=== PATIENT | female | born 1940 | race Caucasian/White ===

== ENCOUNTER 2016-10-30 18:04 | Inpatient (IN) | payer MEDICARE, BC ==
[~2016-10-30] VITALS: Ht 167.6 cm; Wt 66.2 kg
[2016-10-30 18:06] VITALS: BP 132/72; PULSE 74; RESP 15; TEMP 98.3; O2SAT 98
[2016-10-30] MEDS ORDERED: METO25TA3 PO (18:37)
[2016-10-30] MEDS ORDERED: METF500T PO (18:37)
[2016-10-30] MEDS ORDERED: ATOR10TA15 PO (18:37)
[2016-10-30] MEDS ORDERED: ESCI10TA PO (18:37)
[2016-10-30] MEDS ORDERED: VITA10002 PO (18:37)
[2016-10-30] MEDS ORDERED: RANI150T PO (18:37)
[2016-10-30] MEDS ORDERED: LISI10TA3 PO (18:37)
[2016-10-30] MEDS ORDERED: XARE20TA PO (18:37)
--- NOTE | 2016-10-30 18:44 | PD ---
HPI Chief Complaint: Fall Time Seen by Provider: 18:39 Travel History International Travel<30 days: No Contact w/Intl Traveler<30days: No Traveled to known affect area: No History of Present Illness HPI Patient comes in for evaluation status post witnessed trip and fall has been a parking lot toe where she is staying. Patient states she was evaluated on scene by EMT, who happened to be staying the same hotel recommend she come in for evaluation secondary to being on Xarelto and hitting her head. Fall was witnessed by family states that she landed on her all fours and then hit her head. Denies any loss of consciousness. Patient states that she stepped in a hole causing the fall. Patient denies any headache, neck pain, chest pain pre- or Post-fall, loss of consciousness, nausea, vomiting, change in vision, dizziness, lightheadedness, change in vision, numbness or tingling anywhere, shortness of breath, abdominal pain, or loss of bowel or bladder. Patient believes her tetanus shot is up-to-date. Patient states she's feels sore all over. Patient was offered pain medication but is declining at this time. Patient sustained abrasions to her bilateral knees and right elbow that she cleaned and had bandage prior to coming to the emergency department. Patient came by private vehicle. Family reports patient is acting her normal self and has a normal gait. PFSH Past Medical History Hx Anticoagulant Therapy: Yes (XARELTO) Atrial Fibrillation: Yes Cardiovascular Problems: Yes (PACEMAKER) High Cholesterol: Yes Diabetes: Yes Patient Takes Glucophage: Yes Sleep Apnea: Yes (uses CPAP) Tetanus Vaccination: < 5 Years Past Surgical History Abdominal Surgery: Yes (2015 18 inches of intestine removed) Cardiac Surgery: Yes (2013 ablation; pacemaker) Pacemaker: Yes Social History Alcohol Use: No Tobacco Use: No Substance Use: No Allergies-Medications (Allergen,Severity, Reaction): Coded Allergies: Verapamil (Verified Allergy, Unknown, 10/30/16) Reported Meds & Prescriptions Reported Meds & Active Scripts Active Reported Lisinopril 10 Mg Tab 10 Mg PO DAILY Xarelto (Rivaroxaban) 20 Mg Tab 20 Mg PO DAILY Ranitidine (Ranitidine HCl) 150 Mg Tab 150 Mg PO BID Metoprolol Tartrate 25 Mg Tab 50 Mg PO BID Metformin (Metformin HCl) 500 Mg Tab 500 Mg PO BIDPC With meals Vitamin B-12 (Cyanocobalamin) 1,000 Mcg Tab 1,000 Mcg PO DAILY Escitalopram (Escitalopram Oxalate) 10 Mg Tab 10 Mg PO DAILY Atorvastatin (Atorvastatin Calcium) 10 Mg Tab 10 Mg PO HS Review of Systems Except as stated in HPI: all other systems reviewed are Neg Physical Exam Narrative GENERAL: Well-developed, well nourished, in no acute distress, and non-ill appearing. SKIN: Focused skin assessment warm and dry. Small hematoma noted over forehead. Band-Aids noted over right elbow and bilateral anterior knees. HEAD: Atraumatic. Normocephalic. EYES: Pupils equal and round. EOMI. No scleral icterus. No injection or drainage. ENT: No nasal bleeding or discharge. Mucous membranes pink and moist. NECK: Trachea midline. No midline cervical tenderness or crepitus.. Supple. No nuclear rigidity. CARDIOVASCULAR: Radial and dorsal pulses 2+, intact, and equal bilaterally. Capillary refill less than 2 seconds. RESPIRATORY: No accessory muscle use. No respiratory distress. MUSCULOSKELETAL: No obvious deformities. No clubbing. No cyanosis. No edema. Full range of motion. Shoulder:FROM equal BL with passive flexion, extension, Abduction, Adduction, internal/external rotation, and pronation/supination. Sensation equal BL deltoid muscles. Pulses equal BL distal to injury. Capillary refill less than 2 seconds distal to injury and equal BL. FROM distal to injury and equal BL. Strength distal to injury equal BL. NV intact distal to injury equal BL. Flexion and extension of thumb equal BL. Equal strength and movement with abduction/adductions of BL fingers. Importer Exporter strength equal BL. Knee: Negative patellar apprehension, varus and valgus maneuvers, anterior draw test, and Jose Alberto test. Pulses equal BL distal to injury. Capillary refill less than 2 seconds distal to injury and equal BL. FROM distal to injury and equal BL. Strength distal to injury equal BL. NV intact distal to injury. Dorsal pulses equal BL. Sensation equal BL 1st web space. NEUROLOGICAL: Awake and alert. No obvious cranial nerve deficits. Motor grossly within normal limits. Normal speech. PSYCHIATRIC: Appropriate mood and affect; insight and judgment normal. Data Data Last Documented VS Vital Signs Date Time Temp Pulse Resp B/P Pulse Ox O2 Delivery O2 Flow Rate FiO2 10/30/16 18:21 18 10/30/16 18:06 98.3 74 132/[address] Brain W/O Iv Contrast(Rout) (10/30/16 ) Ct Cerv Spine W/O Contrast (10/30/16 ) Ice/Cold Pack (10/30/16 18:42) Apply Cervical Collar (10/30/16 19:27) Basic Metabolic Panel (Bmp) (10/30/16 19:28) Complete Blood Count With Diff (10/30/16 19:28) Prothrombin Time / Inr (Pt) (10/30/16 19:28) Act Partial Throm Time (Ptt) (10/30/16 19:28) Iv Access Insert/Monitor (10/30/16 19:28) Ecg Monitoring (10/30/16 19:28) Oximetry (10/30/16 19:28) Sodium Chloride 0.9% Flush (Ns Flush) (10/30/16 19:30) Electrocardiogram (10/30/16 19:28) Chest, Single Ap (10/30/16 ) [place] J Collar (10/30/16 ) Consult Neurosurgery (10/30/16 ) (Hub Use Only)Inp Phy Cons/Ref (10/30/16 ) Admit Order (Ed Use Only) (10/30/16 20:26) Admit To Inpatient (10/30/16 ) Vital Signs (Adult) Q4H (10/30/16 20:24) Neuro Checks Q4H (10/30/16 20:24) Activity Oob With Assistance (10/30/16 20:24) Assistant Superintendent / Telemetry .CONTINUOUS (10/30/16 20:24) Intake + Output ALLEN.QSHIFT (10/30/16 20:24) Diet Heart Healthy (10/31/16 Breakfast) Sodium Chlor 0.9% 1000 Ml Inj (Ns 1000 M (10/30/16 20:24) Sodium Chloride 0.9% Flush (Ns Flush) (10/30/16 20:30) Sodium Chloride 0.9% Flush (Ns Flush) (10/30/16 21:00) Acetaminophen (Tylenol) (10/30/16 20:30) Ondansetron Inj (Zofran Inj) (10/30/16 20:30) Comprehensive Metabolic Panel (10/31/16 06:00) Complete Blood Count With Diff (10/31/16 06:00) Resp Oxygen Renaldo C Titrat 1-4 L (10/30/16 ) Pt Request For Service (10/30/16 20:24) Case Management Consult (10/30/16 20:24) Enoxaparin Inj (Lovenox Inj) (10/30/16 21:00) Scd Bilateral/Knee High ALLEN.BID (10/30/16 20:24) Gokul Bilateral/Knee High ALLEN.QSHIFT (10/30/16 20:24) Docusate Sodium-Senna (Eulalia-Colace) (10/30/16 21:00) Magnesium Hydroxide Liq (Milk Of Magnesi (10/30/16 20:30) Sennosides (Senokot) (10/30/16 20:30) Bisacodyl Supp (Dulcolax Supp) (10/30/16 20:30) Lactulose Liq (Lactulose Liq) (10/30/16 20:30) Inpatient Certification (10/30/16 ) Morphine Inj (Morphine Inj) (10/30/16 20:30) MDM Medical Decision Making Medical Screen Exam Complete: Yes Emergency Medical Condition: Yes Interpretation(s) CT head read by the radiologist shows: Negative noncontrast CT brain. No acute findings. CT cervical spine read by the radiologist shows: 1. No fracture seen. 2. There is increased separation between the arch of C1 and the dens, measuring 5 mm. This suggests ligamentous injury. Until integrity of the atlantoaxial ligaments can be verified, this should be viewed as an unstable injury. 3. Advanced discogenic and facet joint degenerative changes from C3-C7. Differential Diagnosis Fracture, strain, contusion, intracranial hemorrhage, hematoma, abrasions, other Narrative Course Patient seen and examined. Initial CT studies were obtained and read by the radiologist. Patient was placed in a cervical collar. Discussed patient with neurosurgeon on-call who recommends having patient placed in a [place]- and have patient admitted to medicine and he'll evaluate patient since patient is unable to have MRI done. Discussed all findings and plan of care with patient and her family. Patient is agreeable to admission however patient states if there is any type of surgical intervention she would like to be discharged to have the surgery done back in [place] where she is visiting from. I explained she will have to discuss this with the neurosurgeon. All questions were answered. Discussed patient with Dr. Patel, who saw and evaluated the patient and is in agreement with plan of care and disposition. Physician Communication Physician Communication [address] Vee, neurosurgeon day habilitation supervisor, who recommends patient placed in a [place] J collar and admitted to medicine and he will consult. Diagnosis Primary Impression: Injury to ligament of cervical spine Qualified Code: S13.4XXA - Injury to ligament of cervical spine, initial encounter Admitting Information Admitting Physician Requests: Admit Condition: Stable Kike Callaway Oct 30, 2016 18:44
--- NOTE | 2016-10-30 19:14 | RADRPT ---
EXAM DATE/TIME: 10/30/2016 19:04 [facility] COMPARISON: No previous studies available for comparison. INDICATIONS : Trauma, trip and fell. Hit head. RADIATION DOSE: 56.35 CTDIvol (mGy) MEDICAL HISTORY : Cardiovascular disease. Diabetes mellitus type 2. SURGICAL HISTORY : Pacemaker. ENCOUNTER: Initial ACUITY: 1 day PAIN SCALE: 4/10 LOCATION: cranial TECHNIQUE: Multiple contiguous axial images were obtained of the head. Using automated exposure control and adj ustment of the mA and/or kV according to patient size, radiation dose was kept as low as reasonably a chievable to obtain optimal diagnostic quality images. FINDINGS: CEREBRUM: The ventricles are normal for age. No evidence of midline shift, mass lesion, hemorrhage or acute in farction. No extra-axial fluid collections are seen. POSTERIOR FOSSA: The cerebellum and brainstem are intact. The 4th ventricle is midline. The cerebellopontine angle i s unremarkable. EXTRACRANIAL: The visualized portion of the orbits is intact. SKULL: The calvaria is intact. No evidence of skull fracture. CONCLUSION: Negative noncontrast CT brain. No acute findings. Artemio Mancuso MD on October 30, 2016 at 19:11 Board Certified Radiologist. This report was verified electronically.
--- NOTE | 2016-10-30 19:23 | RADRPT ---
EXAM DATE/TIME: 10/30/2016 19:04 [facility] COMPARISON: No previous studies available for comparison. INDICATIONS : Trauma, trip and fell. Hit head. RADIATION DOSE: 30.87 CTDIvol (mGy) MEDICAL HISTORY : Cardiovascular disease. Diabetes mellitus type 2. SURGICAL HISTORY : Pacemaker. ENCOUNTER: Initial ACUITY: 1 day PAIN SCALE: 2/10 LOCATION: neck TECHNIQUE: Volumetric scanning of the cervical spine was performed. Multiplanar reconstructions in the sagittal, coronal and oblique axial planes were performed. Using automated exposure control and adjustment o f the mA and/or kV according to patient size, radiation dose was kept as low as reasonably achievable to obtain optimal diagnostic quality images. FINDINGS: The head is held in flexion. There is increased distance between the anterior arch of C1 and the den s, measuring almost 5 mm. The diameter of the bony spinal canal at the level of the dens measures 1 cm. The arch of C1 is intact. C2 is intact. Discogenic degenerative changes from C3-T1 with partially bridging anterior paravertebral ossificatio n and posterior osteophytes. The facet joints remain in normal alignment with advanced degenerative changes of the facet joints on the left side C3-C5. The spinous processes are intact. There is ossi fication in the soft tissues superficial to the C5 and C6 level. No fracture seen in the vertebral bodies. There is no foraminal stenosis at multiple levels, severe on the left side at C3-4, moderately severe bilaterally C4-5, C5-6, mild bilaterally at C6-7. CONCLUSION: 1. No fracture seen. 2. There is increased separation between the arch of C1 and the dens, measuring 5 mm. This suggests ligamentous injury. Until integrity of the atlantoaxial ligaments can be verified, this should be vi ewed as an unstable injury. 3. Advanced discogenic and facet joint degenerative changes from C3-C7. Artemio Mancuos MD on October 30, 2016 at 19:15 Board Certified Radiologist. This report was verified electronically.
[2016-10-30] MEDS ORDERED: SODIUM CHLORIDE 0.9% FLUSH 10 ML FLUSH IV FLUSH PRN ×2 (19:30→20:30)
--- NOTE | 2016-10-30 20:18 | RADRPT ---
EXAM DATE/TIME: 10/30/2016 19:50 [facility] COMPARISON: No previous studies available for comparison. INDICATIONS : Evaluate for pneumonia, pneumothorax and communicable disease. MEDICAL HISTORY : None. SURGICAL HISTORY : Pacemaker. ENCOUNTER: Initial ACUITY: 1 day PAIN SCORE: 0/10 LOCATION: Bilateral chest FINDINGS: A single view of the chest demonstrates the lungs to be symmetrically aerated with some patchy areas of infiltrate in the left lower lung. No focal areas of consolidation seen. The right lung is clear . Both hemidiaphragms are well delineated. The cardiomediastinal contours are unremarkable. Osseou s structures are intact. Cardiac pacer leads project over the right atrium and right ventricle. CONCLUSION: Patchy infiltrates in the left lower lung without consolidation. Artemio Mancuso MD on October 30, 2016 at 20:15 Board Certified Radiologist. This report was verified electronically.
[2016-10-30] MEDS: SODIUM CHLOR 0.9% 1000 ML INJ 1,000 ML IV SCH ×2 (20:24→22:41)
[2016-10-30] MEDS ORDERED: BISACODYL 10 MG SUPP RECTAL PRN (20:30)
[2016-10-30] MEDS ORDERED: MORPHINE SULFATE 4 MG/ML INJ IV PUSH PRN (20:30)
[2016-10-30] MEDS ORDERED: LACTULOSE SYRUP 20 GM/30 ML CUP PO PRN (20:30)
[2016-10-30] MEDS ORDERED: MAGNESIUM HYDROXIDE SUSP 30 ML CUP PO PRN (20:30)
[2016-10-30] MEDS ORDERED: ACETAMINOPHEN 325 MG TAB PO PRN (20:30)
[2016-10-30] MEDS ORDERED: SENNOSIDES 8.6 MG TAB PO PRN (20:30)
[2016-10-30] MEDS ORDERED: ONDANSETRON HCL 4 MG/2 ML VIAL IVP PRN (20:30)
--- NOTE | 2016-10-30 20:37 | PD ---
Data Data Last Documented VS Vital Signs Date Time Temp Pulse Resp B/P Pulse Ox O2 Delivery O2 Flow Rate FiO2 10/30/16 18:21 18 10/30/16 18:06 98.3 74 132/[address] Brain W/O Iv Contrast(Rout) (10/30/16 ) Ct Cerv Spine W/O Contrast (10/30/16 ) Ice/Cold Pack (10/30/16 18:42) Apply Cervical Collar (10/30/16 19:27) Basic Metabolic Panel (Bmp) (10/30/16 19:28) Complete Blood Count With Diff (10/30/16 19:28) Prothrombin Time / Inr (Pt) (10/30/16 19:28) Act Partial Throm Time (Ptt) (10/30/16 19:28) Iv Access Insert/Monitor (10/30/16 19:28) Ecg Monitoring (10/30/16 19:28) Oximetry (10/30/16 19:28) Sodium Chloride 0.9% Flush (Ns Flush) (10/30/16 19:30) Electrocardiogram (10/30/16 19:28) Chest, Single Ap (10/30/16 ) [place] J Collar (10/30/16 ) Consult Neurosurgery (10/30/16 ) (Hub Use Only)Inp Phy Cons/Ref (10/30/16 ) Admit Order (Ed Use Only) (10/30/16 20:26) Admit To Inpatient (10/30/16 ) Vital Signs (Adult) Q4H (10/30/16 20:24) Neuro Checks Q4H (10/30/16 20:24) Activity Oob With Assistance (10/30/16 20:24) Assistant Nurse Manager / Telemetry .CONTINUOUS (10/30/16 20:24) Intake + Output ALLEN.QSHIFT (10/30/16 20:24) Diet Heart Healthy (10/31/16 Breakfast) Sodium Chlor 0.9% 1000 Ml Inj (Ns 1000 M (10/30/16 20:24) Sodium Chloride 0.9% Flush (Ns Flush) (10/30/16 20:30) Sodium Chloride 0.9% Flush (Ns Flush) (10/30/16 21:00) Acetaminophen (Tylenol) (10/30/16 20:30) Ondansetron Inj (Zofran Inj) (10/30/16 20:30) Comprehensive Metabolic Panel (10/31/16 06:00) Complete Blood Count With Diff (10/31/16 06:00) Resp Oxygen Renaldo C Titrat 1-4 L (10/30/16 ) Pt Request For Service (10/30/16 20:24) Case Management Consult (10/30/16 20:24) Enoxaparin Inj (Lovenox Inj) (10/30/16 21:00) Scd Bilateral/Knee High ALLEN.BID (10/30/16 20:24) Gokul Bilateral/Knee High ALLEN.QSHIFT (10/30/16 20:24) Docusate Sodium-Senna (Eulalia-Colace) (10/30/16 21:00) Magnesium Hydroxide Liq (Milk Of Magnesi (10/30/16 20:30) Sennosides (Senokot) (10/30/16 20:30) Bisacodyl Supp (Dulcolax Supp) (10/30/16 20:30) Lactulose Liq (Lactulose Liq) (10/30/16 20:30) Inpatient Certification (10/30/16 ) Morphine Inj (Morphine Inj) (10/30/16 20:30) MDM Supervised Visit with MAYRA: Yes Narrative Course I, Dr. Patel], have reviewed the advance practice practitioner's documentation and am in agreement, met with the patient face to face, made the diagnosis, and the medical decision making was done by me. *My assessment and Findings: Patient seen and examined by me, I reviewed the CAT scan results and there is concern for C1 on C2 instability. The patient was placed in a [place] J collar. CT head was negative. The patient has no neurologic findings at this time, cranial nerves II through XII are grossly intact and nonfocal, 5 out of 5 strength in all 4 extremity's, no paresthesias. Patient was discussed with neurosurgery on-call by Raphael Callaway, she will be admitted for the moment for consideration of further workup versus operative intervention. Diagnosis Primary Impression: Injury to ligament of cervical spine Qualified Code: S13.4XXA - Injury to ligament of cervical spine, initial encounter Admitting Information Admitting Physician Requests: Admit Condition: Stable Vicente Patel MD Oct 30, 2016 20:37
[2016-10-30] MEDS ORDERED: DEXTROSE 50% IN WATER 50 ML VIAL(D50) IV PRN (20:45)
[2016-10-30] MEDS ORDERED: GLUCAGON 1 MG/ML VIAL OTHER PRN (20:45)
[2016-10-30 20:57] VITALS: BP 179/78; PULSE 75; RESP 20; O2SAT 96
[2016-10-30] MEDS: INSULIN ASPART SUPPLEMENTAL SCALE SQ SCH (21:00)
[2016-10-30] MEDS ORDERED: ATORVASTATIN 10 MG TAB PO SCH (21:00)
[2016-10-30] MEDS: METOPROLOL TARTRATE 25 MG TAB PO SCH (21:00)
[2016-10-30] MEDS: SODIUM CHLORIDE 0.9% FLUSH 10 ML FLUSH IV FLUSH SCH (21:00)
[2016-10-30] MEDS ORDERED: ENOXAPARIN SODIUM 40 MG/0.4 ML SYRINGE SQ SCH (21:00)
[2016-10-30] MEDS: DOCUSATE SODIUM 50 MG/SENNA 8.6 MG TAB PO SCH (21:00)
[2016-10-30] MEDS: FAMOTIDINE 20 MG TAB PO SCH (21:00)
[2016-10-30 21:02] VITALS: O2SAT 97
--- NOTE | 2016-10-30 21:19 | HHI.HP ---
[facility] Non-Staff Admission Diagnosis cervical ligamentous injury at C1 Diagnoses: Chief Complaint: fall Travel History International Travel<30 Days: No Contact w/Intl Traveler <30 Da: No Traveled to Known Affected Are: No History of Present Illness Patient is a very pleasant 76 yo F with PMH of HTN, DM2, Afib with ablation in the past on xarelto, who came to the ED for evaluation status post witnessed trip and fall while in a parking lot where she is staying. Patient states she was evaluated on the scene by ENT to have him to be staying the same hotel recommend she come in for evaluation secondary to being on Zaroxolyn hitting her head. Fall was witnessed by family states that she landed on her all fours and then hit her head. Denies any loss of consciousness. Patient states that she stepped in a hole causing the fall. Patient denies any headache, neck pain , chest pain pre-or Post-fall, loss of consciousness, nausea, vomiting, change in vision, dizziness, lightheadedness, change in vision, numbness or tingling anywhere, shortness of breath, abdominal pain, or loss of bowel or bladder. Patient leaves her tetanus shot is up-to-date. Patient states she's feels sore all over. Patient was offered pain medication but is declining at this time. She reports her tetanus shot is up-to-date. Patient sustained abrasions to her bilateral knees and right elbow that she cleaned and had bandage prior to coming to the emergency department. Patient came by private vehicle. Family reports patient is acting her normal self and has a normal gait. Review of Systems Except as stated in HPI: all other systems reviewed are Neg Past Family Social History Past Medical History HTN, DN2, Afib with ablation in the past and PM, on xarelto, sleep apnea Past Surgical History 2015 18 inches of intestine removed) 2013 ablation; pacemaker Reported Medications Reported Meds & Active Scripts Active Reported Lisinopril 10 Mg Tab 10 Mg PO DAILY Xarelto (Rivaroxaban) 20 Mg Tab 20 Mg PO DAILY Ranitidine (Ranitidine HCl) 150 Mg Tab 150 Mg PO BID Metoprolol Tartrate 25 Mg Tab 50 Mg PO BID Metformin (Metformin HCl) 500 Mg Tab 500 Mg PO BIDPC With meals Vitamin B-12 (Cyanocobalamin) 1,000 Mcg Tab 1,000 Mcg PO DAILY Escitalopram (Escitalopram Oxalate) 10 Mg Tab 10 Mg PO DAILY Atorvastatin (Atorvastatin Calcium) 10 Mg Tab 10 Mg PO HS Allergies: Coded Allergies: Verapamil (Verified Allergy, Unknown, 10/30/16) Family History Father : emphysema was a smoker Mother: Hemorrhagic stroke at 80 ya Sister cancer unspecified Social History Denies EtOH use, tobacco use or illicit drug use Physical Exam Vital Signs Vital Signs Date Time Temp Pulse Resp B/P Pulse Ox O2 Delivery O2 Flow Rate FiO2 10/30/16 18:21 18 10/30/16 18:06 98.3 74 15 132/72 98 Physical Exam GENERAL: This is a very pleasant 76 yo F, well-nourished, well-developed patient , in no apparent distress. SKIN: Superficial lacerations knees, elbows, band aid applied, c/d/i. Cool and dry. HEAD: Atraumatic. Normocephalic. No temporal or scalp tenderness. EYES: Pupils equal round and reactive. Extraocular motions intact. No scleral icterus. No injection or drainage. ENT: Nose without bleeding, purulent drainage or septal hematoma. Throat without erythema, tonsillar hypertrophy or exudate. Uvula midline. Airway patent. NECK: [place] collar in place. Trachea midline. CARDIOVASCULAR: Regular rate and rhythm without murmurs, gallops, or rubs. RESPIRATORY: Clear to auscultation. Breath sounds equal bilaterally. No wheezes , rales, or rhonchi. GASTROINTESTINAL: Abdomen soft, non-tender, nondistended. No hepato-splenomegaly , or palpable masses. No guarding. MUSCULOSKELETAL: No obvious deformities. No clubbing. No cyanosis. No edema. Upper extremities full ROM, neurovascular intact. NEUROLOGICAL: Awake and alert. No obvious cranial nerve deficits. Motor grossly within normal limits. Normal speech. PSYCHIATRIC: Appropriate mood and affect; insight and judgment normal. Imaging Last Impressions Head CT 10/30/16 0000 Signed Impressions: Service Date/Time: Sunday, October 30, 2016 19:04 - CONCLUSION: Negative noncontrast CT brain. No acute findings. Artemio Mancuso MD Chest X-Ray 10/30/16 0000 Signed Impressions: Service Date/Time: Sunday, October 30, 2016 19:50 - CONCLUSION: Patchy infiltrates in the left lower lung without consolidation. Artemio Mancuso MD Cervical Spine CT 10/30/16 0000 Signed Impressions: Service Date/Time: Sunday, October 30, 2016 19:04 - CONCLUSION: 1. No fracture seen. 2. There is increased separation between the arch of C1 and the dens, measuring 5 mm. This suggests ligamentous injury. Until integrity of the atlantoaxial ligaments can be verified, this should be viewed as an unstable injury. 3. Advanced discogenic and facet joint degenerative changes from C3- C7. Artemio Mancuso MD Assessment and Plan Assessment and Plan Fall Neck pain after fall with cervical ligamentous injury at C1 CT head read by the radiologist shows: Negative noncontrast CT brain. No acute findings. CT cervical spine shows: 1. No fracture seen. 2. There is increased separation between the arch of C1 and the dens, measuring 5 mm. This suggests ligamentous injury. Until integrity of the atlantoaxial ligaments can be verified, this should be viewed as an unstable injury. 3. Advanced discogenic and facet joint degenerative changes from C3-C7. Per Dr. Vee, neurosurgeon business support professional, recommends [place] J collar and to be consulted on the case. Consuklt neurosurgery .Appreciate recommendations. Note MRI can't be done as patient with PM AFib (with h/o ablation and PM placement: Continue Metoprolol 50 Mg PO BID. Continue Xarelto 20 Mg PO DAILY HTN: continue Lisinopril 10 Mg PO DAILY, and Metoprolol Diabetes mellitus: Hold Metformin. Accu checks, ISS. HLD: Continue Atorvastatin 10 Mg PO HS Depression/Anxiety: Continue Escitalopram 10 Mg PO DAILY GERD: Ranitidine 150 Mg PO BID GI ppx: Ranitidine 150 Mg PO BID DVT ppx SCD/TEDs, on xarelto Physician Certification 2 Midnight Certification Type: Admission for Inpatient Services Order for Inpatient Services The services are ordered in accordance with Medicare regulations or non- Medicare payer requirements, as applicable. In the case of services not specified as inpatient-only, they are appropriately provided as inpatient services in accordance with the 2-midnight benchmark. Estimated LOS (days): 3 days is the estimated time the patient will need to remain in the hospital, assuming treatment plan goals are met and no additional complications. Post-Hospital Plan: Home Maria M Dugan MD Oct 30, 2016 21:19
[2016-10-30 21:22] LABS: AUTOMATED NEUTROPHIL # 4.2 TH/MM3 (1.8-7.7); BASOPHIL # 0.1 TH/MM3 (0-0.2); BASOPHIL % 0.6 % (0.0-2.0); EOSINOPHIL # 0.2 TH/MM3 (0-0.4); EOSINOPHIL % 2.9 % (0.0-4.0); HEMATOCRIT 34.4 % (35.0-46.0); HEMO FLAGS DIFF FINAL; LYMPH % 35.8 % (9.0-44.0); LYMPHOCYTE # 2.8 TH/MM3 (1.0-4.8); MEAN CELL VOLUME 90.9 FL (80.0-100.0); MEAN CORPUSCULAR HEMOGLOBIN 30.9 PG (27.0-34.0); MONO % 7.4 % (0.0-8.0); NEUT % 53.3 % (16.0-70.0); PLATELET COUNT 154 TH/MM3 (150-450); RED BLOOD COUNT 3.78 MIL/MM3 (4.00-5.30); RED CELL DISTRIBUTION WIDTH 14.2 % (11.6-17.2); WHITE BLOOD COUNT 7.9 TH/MM3 (4.0-11.0)
[2016-10-30 21:26] LABS: PROTHROMBIN TIME - PATIENT 11.2 SEC (9.8-11.6)
[2016-10-30 21:44] LABS: POTASSIUM 4.3 MEQ/L (3.5-5.1)
[2016-10-31] VITALS: BP 123/61; PULSE 69; RESP 20; TEMP 98.2; O2SAT 96
[2016-10-31 01:27] VITALS: PULSE 69
[2016-10-31 04:00] VITALS: BP 150/71; PULSE 76; RESP 20; TEMP 96.5; O2SAT 96
[2016-10-31] MEDS: INSULIN ASPART SUPPLEMENTAL SCALE SQ SCH ×2 (05:29→11:58)
[2016-10-31 07:55] VITALS: BP 128/71; PULSE 68; RESP 18; TEMP 96.5; O2SAT 98
[2016-10-31] MEDS: METOPROLOL TARTRATE 25 MG TAB PO SCH (08:29)
[2016-10-31] MEDS: FAMOTIDINE 20 MG TAB PO SCH (08:30)
[2016-10-31] MEDS: DOCUSATE SODIUM 50 MG/SENNA 8.6 MG TAB PO SCH (08:31)
[2016-10-31] MEDS: SODIUM CHLORIDE 0.9% FLUSH 10 ML FLUSH IV FLUSH SCH (08:32)
[2016-10-31] MEDS ORDERED: LISINOPRIL 10 MG TAB PO SCH (09:00)
[2016-10-31] MEDS ORDERED: RIVAROXABAN 20 MG TAB PO SCH (09:00)
[2016-10-31] MEDS ORDERED: CYANOCOBALAMIN 1,000 MCG TAB PO SCH (09:00)
[2016-10-31] MEDS ORDERED: ESCITALOPRAM OXALATE 10 MG TAB PO SCH (09:00)
[2016-10-31 09:07] LABS: AUTOMATED NEUTROPHIL # 4.4 TH/MM3 (1.8-7.7); BASOPHIL % 0.4 % (0.0-2.0); EOSINOPHIL # 0.1 TH/MM3 (0-0.4); HEMATOCRIT 34.8 % (35.0-46.0); HEMO FLAGS DIFF FINAL; LYMPH % 29.9 % (9.0-44.0); LYMPHOCYTE # 2.2 TH/MM3 (1.0-4.8); MEAN CELL VOLUME 92.6 FL (80.0-100.0); MEAN CORPUSCULAR HEMOGLOBIN 30.3 PG (27.0-34.0); MEAN CORPUSCULAR HGB CONC 32.7 % (32.0-36.0); MONO % 8.1 % (0.0-8.0); NEUT % 59.6 % (16.0-70.0); PLATELET COUNT 136 TH/MM3 (150-450); RED BLOOD COUNT 3.76 MIL/MM3 (4.00-5.30); WHITE BLOOD COUNT 7.4 TH/MM3 (4.0-11.0)
[2016-10-31 09:38] LABS: ALKALINE PHOSPHATASE 71 U/L (45-117); ALT (GPT) 28 U/L (10-53); ANION GAP 8 MEQ/L (5-15); AST (GOT) 21 U/L (15-37); BICARBONATE 23.1 MEQ/L (21.0-32.0); BLOOD UREA NITROGEN 13 MG/DL (7-18); CHLORIDE 109 MEQ/L (98-107); GLOMERULAR FILTRATION RATE 101 ML/MIN (>89); POTASSIUM 4.1 MEQ/L (3.5-5.1); SODIUM (NA) 140 MEQ/L (136-145); TOTAL BILIRUBIN ADULT 0.5 MG/DL (0.2-1.0)
--- NOTE | 2016-10-31 10:01 | HHI.PR ---
Subjective Remarks patient resting on the chair family at the bedside denied any headache or dizziness or blurry vision numbness or tingling in the arms or any muscle weakness Objective Vitals Vital Signs Date Time Temp Pulse Resp B/P Pulse Ox O2 Delivery O2 Flow Rate FiO2 10/31/16 07:55 96.5 68 18 128/71 98 10/31/16 04:00 96.5 76 20 150/71 96 10/31/16 01:27 69 10/31/16 00:00 98.2 69 20 123/61 96 10/30/16 21:02 97 21 10/30/16 20:57 75 20 179/78 96 10/30/16 18:21 18 10/30/16 18:06 98.3 74 15 132/72 98 I/O 10/30/16 10/30/16 10/30/16 10/31/16 10/31/16 10/31/16 07:00 15:00 23:00 07:00 15:00 23:00 Intake Total 757 ml Balance 757 ml Intake IV Total 757 ml # Voids 3 # Bowel Movements 1 Result Diagram: 10/31/16 0852 10/31/16 0852 Objective Remarks GENERAL: This is a well-nourished, well-developed patient, in no apparent distress. in neck collar CARDIOVASCULAR: Regular rate and rhythm without murmurs, gallops, or rubs. RESPIRATORY: Clear to auscultation. Breath sounds equal bilaterally. No wheezes , rales, or rhonchi. GASTROINTESTINAL: Abdomen soft, non-tender, nondistended. Normal active bowel sounds MUSCULOSKELETAL: Extremities without clubbing, cyanosis, or edema. NEURO: Alert & Oriented x4 to person, place, time, situation. Moves all ext x4 A/P Assessment and Plan 10/31: Discussed with the patient and her family in length, her neuro exam is fully within normal limits, the family is out of town he would like to be discharged if no further intervention needed, we placed a call for neurosurgery to confirm Fall Neck pain after fall with cervical ligamentous injury at C1 CT head read by the radiologist shows: Negative noncontrast CT brain. No acute findings. CT cervical spine shows: 1. No fracture seen. 2. There is increased separation between the arch of C1 and the dens, measuring 5 mm. This suggests ligamentous injury. Until integrity of the atlantoaxial ligaments can be verified, this should be viewed as an unstable injury. 3. Advanced discogenic and facet joint degenerative changes from C3-C7. Per Dr. Vee, neurosurgeon monotype operator, recommends [place] J collar and to be consulted on the case. Consult neurosurgery .Appreciate recommendations. Note MRI can't be done as patient with PM, further recs per nsx AFib (with h/o ablation and PM placement: Continue Metoprolol 50 Mg PO BID. Continue Xarelto 20 Mg PO DAILY HTN: continue Lisinopril 10 Mg PO DAILY, and Metoprolol Diabetes mellitus: Hold Metformin. Accu checks, ISS. HLD: Continue Atorvastatin 10 Mg PO HS Depression/Anxiety: Continue Escitalopram 10 Mg PO DAILY GERD: Ranitidine 150 Mg PO BID GI ppx: Ranitidine 150 Mg PO BID DVT ppx SCD/TEDs, on xarelto Discharge Planning Discharge patient to home Condition on discharge: Improved on neck collar healthy heart ada 1800 Diet as tolerated [employer]ie activity Rx written:see med rec, neck collar 4-6 weeks Follow-up with primary care physician and neurosurgeon in 1-2 weeks Kareem Cormier MD Oct 31, 2016 10:01
[2016-10-31 10:32] VITALS: O2SAT 96
[2016-10-31 11:40] VITALS: BP 124/69; PULSE 65; RESP 18; TEMP 97.2; O2SAT 95
--- NOTE | 2016-10-31 12:02 | MB ---
cc: KEVIN TRACY M.D. DATE OF CONSULTATION 10/31/2016 REASON FOR CONSULTATION C1-2 possible instability. HISTORY OF PRESENT ILLNESS A 76-year-old female who is visiting from [place], [place], on vacation, residing in a hotel. The patient was checking in last evening when she fell in the parking lot and struck her forehead. She denies any loss of consciousness or any numbness or paresthesias or weakness in the upper or lower extremities. She suffered from some abrasions of her upper and lower extremities and the forehead. She was brought to [facility] and a CT scan of the head is negative. CT of the cervical spine does not reveal any fractures with extensive cervical degenerate changes. There is C1-2 predental space widening of 5-mm and some associated spinal stenosis. She cannot have an MRI scan given her history of a cardiac pacemaker in place. She was placed in a cervical collar admitted to the medical service with neurosurgical consultation requested. PAST MEDICAL HISTORY 1. Atrial fibrillation status post ablation and also has a pacemaker in place. 2. Hyperlipidemia. 3. Diabetes mellitus. 4. Sleep apnea with C-PAP machine use. 5. Abdominal surgery. SOCIAL HISTORY She is on vacation for the week from [place]. Denies alcohol or tobacco use. She is and her and son-in-law are here with her. MEDICATIONS 1. Atorvastatin 10 mg q.h.s. 2. Vitamin B12 1,000 mcg daily. 3. Lisinopril 10 mg daily. 4. Metformin 500 mg b.i.d. 5. Metoprolol 50 mg b.i.d. 6. Zantac 150 mg b.i.d. 7. Xarelto 20 mg daily. 8. Escitalopram 10 mg daily. ALLERGIES VERAPAMIL. LABORATORY FINDINGS White blood cell count 7.4, hemoglobin 11.4, platelet count 136. PT 11.2, INR 1.0, PTT 24, Sodium 140, potassium 4.1, BUN 13, creatinine 0.58, glucose 101. PHYSICAL EXAMINATION VITAL SIGNS: Temperature 96.5, pulse 68, respiratory rate 18, blood pressure 128/71, oxygen saturation 98% on room air. HEAD: She has a forehead abrasion with no Stovall's or raccoon's sign. NECK: Neck is in a [place] J collar. When the collar is removed with controlled flexion/extension she relates no pain or guarding or rigidity. Chest: Clear to auscultation bilaterally. HEART: Regular rate and rhythm. Normal S1 and S2. ABDOMEN: Soft, nontender. EXTREMITIES: No cyanosis or edema with some abrasions. NEUROLOGIC: He is awake, alert. Cranial nerves are grossly intact. Motor strength in the upper and lower extremities is 5/5. Speech is normal and fluent. Light touch sensation is intact. Negative Babinski and Rebeca's. She is ambulating independently to the bathroom and relates no lightheadedness or dizziness. IMPRESSION 1. C1-2 predental space widening, more than within physiologic range. Questionable is this is related to ligamentous disruption as unfortunately she could not have an MRI scan. She does not appear to be symptomatic from this with no neck pain with movement. 2. Chronic atrial fibrillation, status post ablation and pacemaker in place on Xarelto anticoagulant therapy. 3. Diabetes mellitus. 4. Sleep apnea. 5. Hypertension. PLAN We will obtain a cervical spine flexion-extension x-ray to rule out any instability with positioning. If there does appear to be significant abnormal movement with dynamic imaging, then that would indicate an unstable ligamentous injury also and would likely require C1-C2 surgical stabilization. If there is no abnormal movement, then we could treat this nonsurgically but I would still leave her in a collar given the possibility of some ligamentous disruption to heal in the next 4-6 weeks. The patient and her family relate that, if there is any surgical intervention to be undertaken, she would prefer to have this done in [place] and would like to be discharged home and follow up with her local physician and surgeon. Accordingly, I ill order the cervical spine flexion/extension x-ray and she could likely be discharged thereafter to follow up with her local physicians. She understands that if there is gross instability, the risk of this leading to further subluxation and spinal cord injury with paralysis, incontinence and respiratory arrest/. MD MONAE Boo/MACY /11:01 AM /11:44 AM
--- NOTE | 2016-10-31 12:10 | RADRPT ---
EXAM DATE/TIME: 10/31/2016 11:45 [facility] COMPARISON: CHEST SINGLE AP, October 30, 2016, 19:50. INDICATIONS : Neck pain. Fall yesterday. MEDICAL HISTORY : Cardiovascular disease. Diabetes mellitus type 2 SURGICAL HISTORY : Pacemaker. ENCOUNTER: Subsequent ACUITY: 2 days PAIN SCORE: 2/10 LOCATION: Bilateral neck. FINDINGS: Flexion and extension views of cervical spine are provided. Alignment of the cervical vertebral jose s and the atlantodens joint appear stable. There are advanced degenerative changes. No acute fracture is seen. CONCLUSION: 1. Stable alignment of the cervical spine with flexion and extension. 2. Advanced degenerative changes. Celestine Moss MD on October 31, 2016 at 12:07 Board Certified Radiologist. This report was verified electronically.
--- NOTE | 2016-10-31 18:21 | EKG ---
Date Performed: 10/30/2016 Time Performed: 19:44:25 PTAGE: 76 years EKG: Atrial pacing ABNORMAL RHYTHM ECG NO PREVIOUS TRACING DOCTOR: Tremaine Xiao Interpretating Date/Time 10/31/2016 18:20:10
== END 2016-10-31 14:23 | disposition home or self-care (01) | DRG 552 ==
LOC: NEPC 18:04 → NEDA 20:28 → N05B 21:47
PROVIDERS: ADMIT Hospitalist; ATTEND Hospitalist
DX: S13.4XXA Sprain of ligaments of cervical spine, initial encounter (principal); I48.2 Chronic atrial fibrillation; E11.9 Type 2 diabetes mellitus without complications; I10 Essential (primary) hypertension; W01.0XXA Fall on same level from slipping, tripping and stumbling without subsequent striking against object, initial encounter; Y92.481 Parking lot as the place of occurrence of the external cause; E78.5 Hyperlipidemia, unspecified; K21.9 Gastro-esophageal reflux disease without esophagitis; G47.30 Sleep apnea, unspecified; F32.9 Major depressive disorder, single episode, unspecified; F41.9 Anxiety disorder, unspecified; Z95.0 Presence of cardiac pacemaker; Z79.01 Long term (current) use of anticoagulants; Z79.84 Long term (current) use of oral hypoglycemic drugs
CPT/HCPCS: 70450; 71010; 72040; 72125; 80048; 80053; 82948; 85025; 85610; 85730; 93005; J1815; J7030; L0150; L0172